=== PATIENT | female | born 1985 | race Caucasian/White ===

== ENCOUNTER 2020-02-02 10:54 | Inpatient (IN) | payer BC ==
[2020-02-02 11:54] LABS: APPEARANCE,URINE SLIGHTLY-CLOUDY; BILIRUBIN,URINE NEGATIVE (NEGATIVE); COLOR,URINE YELLOW; GLUCOSE, URINE NEGATIVE (NEGATIVE); KETONES,URINE NEGATIVE (NEGATIVE); LEUKOCYTE ESTERASE,URINE NEGATIVE (NEGATIVE); NITRITE,URINE NEGATIVE (NEGATIVE); PROTEIN,URINE 30 mg/dL (NEGATIVE); UROBILINOGEN,URINE NEGATIVE mg/dL (<2.0)
[2020-02-02] MEDS ORDERED: RINGERS SOLUTION,LACTATED 1,000 ML IV ONE (12:05)
[2020-02-02] MEDS ORDERED: PENICILLIN G POTASSIUM 5,000,000 UNIT in DEXTROSE 5%-WATER 100 ML IV ONE (12:05)
[2020-02-02] MEDS ORDERED: PENICILLIN G-K 5 MILLION UNIT VIAL ONE ×3 (12:21→20:25)
[2020-02-02 12:26] LABS: URINE AMPHETAMINES SCREEN NEGATIVE; URINE BARBITURATES SCREEN NEGATIVE; URINE BENZODIAZEPINES SCREEN NEGATIVE; URINE COCAINE SCREEN NEGATIVE; URINE MARIJUANA (THC) SCREEN NEGATIVE; URINE METHADONE SCREEN NEGATIVE; URINE PHENCYCLIDINE SCREEN NEGATIVE
--- NOTE | 2020-02-02 12:33 | Admission Physical ---
Datetime Report Generated by CPN: 02/02/2020 12:33 CURRENT ADMISSION Chief Complaint: Suspected Ruptured Membranes Indication for Induction: PROM Admit Impression : Term, Intrauterine ; No Active Labor Admit Plan: Admit to Unit; Initiate Labor Augmentation Protocol ALLERGIES Medication Allergies: No Medication Allergies: No Known Allergies (01/09/2014) Latex: Latex Allergies OBSTETRICAL HISTORY EDC: 02/06/2020 00:00 : 1 Para: 0 Term: 0 : 0 SAB: 0 IAB: 0 Ectopic: 0 Livin Cesareans: 0 VBACs: 0 Multiple Births: 0 SEE RECORDS Alcohol: No Marijuana : No Cocaine: No Other Illicit Drugs: No Cigarettes: Current Some Day Smoker. [id number] PHYSICAL EXAM General: Normal HEENT: Normal Neurologic: Normal Thyroid: Deferred Heart: Normal Lungs: Normal Breast: Deferred Back: Normal Abdomen: Normal Genitourinary Exam: Normal Extremities: Normal DTRs: Deferred Pelvic Type: Adequate MEMBRANES Membranes: Ruptured Amniotic Fluid Color: Clear FETUS A EGA: 39.3 Monitoring: External US FHR- Baseline: 135 Variability: Moderate 6-25bpm Accelerations: 10X10 Decelerations: Prolonged Estimated Weight (gm): 3100 Presentation: Vertex Admit Comment: G1 at 39+3, srom at 0940 today-clear, GBS pos. prolonged decel (5 mins down to 60) recovered with position changes. 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 P: penicillin for GBS prophylaxis. discuss pitocin with pt, anticipate PLANS FOR LABOR AND DELIVERY Labor and Delivery: None Pain Management: None Feeding Preference: Breast Benefit of Breast Feed Discussed: Yes Circumcision: Yes INFORMED CONSENT Assignment: Diana Kasper MD Signature: with User ID: [email or web address] : with User ID: [email or web address]
[2020-02-02 12:37] LABS: ABSOLUTE EOSINOPHILS # (AUTO) 0.1 10^3/uL (0.0-0.6); ABSOLUTE LYMPHOCYTES (AUTO) 1.6 10^3/uL (0.5-4.7); ABSOLUTE MONOCYTES (AUTO) 0.5 10^3/uL (0.1-1.4); ABSOLUTE NEUT (AUTO) 8.5 10^3/uL (1.7-8.2); BASOPHILS % (AUTO) 0.4 % (0-2); EOSINOPHILS % (AUTO) 1.2 % (0-6); HEMATOCRIT 31.8 % (36.0-47.0); HEMOGLOBIN 11.7 g/dL (12.0-15.5); LYMPHOCYTES % (AUTO) 14.7 % (13-45); MEAN CORPUSCULAR HEMOGLOBIN 32.2 pg (27.0-33.4); MEAN CORPUSCULAR HGB CONC 36.6 g/dL (32.0-36.0); MEAN CORPUSCULAR VOLUME 88 fl (80-97); MONOCYTES % (AUTO) 4.9 % (3-13); PLATELET COUNT 348 10^3/uL (150-450); RED BLOOD COUNT 3.62 10^6/uL (3.72-5.28); SEGMENTED NEUTROPHILS % (AUTO) 78.8 % (42-78); TOTAL CELLS COUNTED % (AUTO) 100 %; WHITE BLOOD COUNT 10.8 10^3/uL (4.0-10.5)
[2020-02-02] MEDS ORDERED: OXYTOCIN/NORMAL SALINE 20 UNIT/1,000 ML RTUINJ IV PRN (13:13)
[2020-02-02] MEDS ORDERED: OXYTOCIN 10 UNIT/ML VIAL ONE (13:34)
[2020-02-02] MEDS ORDERED: OXYTOCIN/NORMAL SALINE 20 UNIT/1,000 ML RTUINJ ONE (13:34)
[2020-02-02] MEDS ORDERED: LIDOCAINE 1% INJ-PF (10 MG/ML) 30 ML SDV ONE ×2 (13:34→23:31)
[2020-02-02] MEDS ORDERED: MISOPROSTOL 0.2 MG TABLET ONE (13:34)
[2020-02-02] MEDS: PENICILLIN G POTASSIUM 2,500,000 UNIT in DEXTROSE 5%-WATER 50 ML IV SCH ×2 (16:37→20:29)
[2020-02-02] MEDS ORDERED: PROMETHAZINE HCL INJ 25 MG/1 ML VIAL IV ONE (16:54)
[2020-02-02] MEDS ORDERED: MORPHINE SULFATE 10 MG/ML INJ IV ONE (16:54)
[2020-02-02] MEDS ORDERED: PROMETHAZINE HCL INJ 25 MG/1 ML VIAL ONE (16:59)
[2020-02-02] MEDS ORDERED: MORPHINE SULFATE 10 MG/ML INJ ONE (17:00)
[2020-02-02] MEDS ORDERED: EPHEDRINE SULFATE INJ 50 MG/1 ML AMPULE ONE (19:18)
[2020-02-02] MEDS ORDERED: FENTANYL CITRATE INJ/PF 100 MCG/2 ML AMPUL ONE (19:18)
[2020-02-02] MEDS ORDERED: BUPIVACAINE HCL 0.25 % INJ/PF (2.5 MG/1 ML) 30 ML VIAL ONE (19:19)
[2020-02-02] MEDS ORDERED: FENTANYL/BUPIVACAINE/NS/PF 300 MCG/150 ML RTUINJ EPI ONE (19:19)
--- NOTE | 2020-02-02 23:52 | Warning Signs in Babies ---
VOD Warning Signs Datetime Report Generated by [facility]: 02/02/2020 23:52 VOD#608 -Warning Signs in Babies: Needs to be viewed. (02/02/2020 10:59:Irais Rubio RN)
[2020-02-03] MEDS ORDERED: CEFTRIAXONE INJ 1000 MG VIAL ONE (00:27)
[2020-02-03] MEDS ORDERED: DIBUCAINE 1% OINTMENT 28 GM TP PRN (00:44)
[2020-02-03] MEDS ORDERED: OXYTOCIN/NORMAL SALINE 20 UNIT/1,000 ML RTUINJ IV PRN (00:44)
[2020-02-03] MEDS ORDERED: ACETAMINOPHEN WITH CODEINE #3 TABLET PO PRN ×2 (00:44)
[2020-02-03] MEDS ORDERED: PROMETHAZINE HCL 25 MG TABLET PO PRN (00:44)
[2020-02-03] MEDS ORDERED: DIPH/PERTUSS(ACELL)/TETANUS VAC/PF 0.5 ML SYR (>=10YO) IM PRN (00:44)
[2020-02-03] MEDS ORDERED: ZOLPIDEM TARTRATE 5 MG TABLET PO PRN (00:44)
[2020-02-03] MEDS ORDERED: MAGNESIUM HYDROXIDE SUSP 30 ML UDCUP PO PRN (00:44)
[2020-02-03] MEDS ORDERED: PROMETHAZINE HCL INJ 25 MG/1 ML VIAL IV PRN (00:44)
[2020-02-03] MEDS ORDERED: ACETAMINOPHEN 650 MG SUPP.RECT PR PRN (00:44)
[2020-02-03] MEDS ORDERED: MEASLES,MUMPS&RUBELLA VACC/PF 0.5 ML VIAL SUBCUT PRN (00:44)
[2020-02-03] MEDS ORDERED: GLYCERIN/WITCH HAZEL LEAF 1 EACH MED..WIPE TP PRN (00:44)
[2020-02-03] MEDS ORDERED: DIPHENHYDRAMINE HCL 25 MG CAPSULE PO PRN (00:44)
[2020-02-03] MEDS ORDERED: PROMETHAZINE HCL 25 MG SUPP.RECT PR PRN (00:44)
[2020-02-03] MEDS ORDERED: NA PHOS,M-B/NA PHOS,DI-BA (ADULT) 133 ML ENEMA PR PRN (00:44)
[2020-02-03] MEDS ORDERED: PSEUDOEPHEDRINE HCL 30 MG TABLET PO PRN (00:44)
[2020-02-03] MEDS ORDERED: BENZOCAINE/MENTHOL AEROSOL SPRAY 56 ML TOP PRN (00:44)
[2020-02-03] MEDS ORDERED: IBUPROFEN 800 MG TABLET ONE (02:02)
[2020-02-03] MEDS: PENICILLIN G POTASSIUM 2,500,000 UNIT in DEXTROSE 5%-WATER 50 ML IV SCH (03:19)
--- NOTE | 2020-02-03 03:29 | Delivery Summary ---
Del Sum A-C Datetime Report Generated by CPN: 02/03/2020 03:28 DELIVERY PERSONNEL DELIVERY PERSONNEL: [id number] Delivery Doctor:: Diana Kasper MD Anesthesiologist:: Flori Palafox MD Labor and Delivery Nurse:: Natalee Ruvalcaba RN Labor and Delivery Nurse:: Naomy Kirby RN Nursery Nurse:: Laura Jiménez RN Nursery Nurse:: Nicol Hwang RN Information Security Consultant/SPACE CONTROL SUPERVISOR: Arti Quintero SURFACE LAY OUT TECHNICIAN Information Security Consultant/SPACE CONTROL SUPERVISOR: Erma Makayla, SURFACE LAY OUT TECHNICIAN MATERNAL INFORMATION Delivery Anesthesia: Epidural Medications After Delivery: Pitocin Bolus-Please Comment Meds After Delivery Comment: Pitocin 20 units/1000 mL NS bolus following delivery Delivery QBL Comment: Laura Stackh RN called returned to delivery room at 5 mins of age. Maternal Complications: Maternal Fever LABOR SUMMARY EDC: 02/06/2020 00:00 No. Babies in Womb: 1 Attempted: No Labor Anesthesia: Epidural LABOR INFORMATION Reason for Induction: Not Applicable Onset of Labor: 02/02/2020 09:40 Complete Dilatation: 02/02/2020 20:07 Oxytocin: Augmentation Group B Beta Strep: Positive Antibiotics # of Doses: 3 Antibiotics Time of Last Dose: 2029 Name of Antibiotic Given: Penicillin Steroids Given: None Reason Steroids Not Administered: Not Applicable MEMBRANES Membranes Rupture Method: Spontaneous Rupture of Membranes: 02/02/2020 09:40 Length of Rupture (hr): 14.50 Amniotic Fluid Color: Clear Amniotic Fluid Amount: Moderate Amniotic Fluid Odor: Normal STAGES OF LABOR Stage 1 hr: 10 Stage 1 min: 27 Stage 2 hr: 4 Stage 2 min: 3 Stage 3 hr: 0 Stage 3 min: 4 Total Time in Labor hr: 14 Total Time in Labor min: 34 VAGINAL DELIVERY Episiotomy: None Laceration #1: Perineal Laceration Extension #1: Second Degree Laceration #2: None Laceration Extension #2: N/A Laceration #3: None Laceration Extension #3: N/A Laceration Repair: Yes Laceration Repair Note: Repair of second degree perineal laceration in usual fashion. Sponge Count Correct: Yes Sharps Count Correct: No CSECTION DELIVERY Primary Indication: N/A Secondary Indication: N/A CSection Incidence: N/A Labor: N/A Elective: N/A CSection Incision: N/A BABY A INFORMATION Infant Delivery Date/Time: 02/03/2020 00:10 Method of Delivery: Vaginal Nurse Controlled Delivery: No Born in Route : No : N/A Forceps: N/A Vacuum Extraction: N/A Shoulder Dystocia : No PRESENTATION/POSITION BABY A Presentation: Cephalic Cephalic Presentation: Vertex Vertex Position: Right Occipital Anterior Breech Presentation: N/A PLACENTA INFORMATION BABY A Placenta Delivery Time : 02/03/2020 00:14 Placenta Method of Delivery: Spontaneous Placenta Status: Delivered SCORES BABY A Heart Rate 1 min: Slow, Below 100 bpm Resp Effort 1 min: Absent Reflex Irritability 1 min: No Response Muscle Tone 1 min: Flaccid Color 1 min: Body [place], Extremities Blue Resuscitation Effort 1 min: Tactile Stimulation SCORE 1 MIN: 2 Heart Rate 5 min: >100 bpm Resp Effort 5 min: Slow, Irregular Reflex Irritability 5 min: Grimace Muscle Tone 5 min: Some Flexion of Extremities Color 5 min: Blue/Pale Resuscitation Effort 5 min: Tactile Stimulation; Oxygen; PPV/NCPAP SCORE 5 MIN: 5 Heart Rate 10 min: >100 bpm Resp Effort 10 min: Good Cry Reflex Irritability 10 min: Cough or Sneeze or Pulls Away Muscle Tone 10 min: Active Motion Color 10 min: Body [place], Extremities Blue Resuscitation Effort 10 min: Tactile Stimulation SCORE 10 MIN: 9 INFORMATION BABY A Gestational Age at Delivery: 39.3 Gestational Status: Full Term- 39- 40.6 Weeks Outcome : Liveborn Infant Condition : Stable Sex: Male IDENTIFICATION BABY A Verification Date/Time: 02/03/2020 01:00 ID Band Number: [id number] Mother's Name Verified: Yes Infant RN Verifying : Yaz Ruvalcaba RN Additional Verifying Personnel: [employer]. RN WEIGHT/LENGTH BABY A Infant Birthweight (gm): 2943 Infant Weight (lb): 6 Weight (oz): 8 Infant Length (in): 17.50 Infant Length (cm): 44.45 CORD INFORMATION BABY A No. Cord Vessels: 3 Nuchal Cord : yes Nuchal Cord- Other: x3 around neck Cord Blood Taken: Yes-For Storage (Mom's Blood type +) Suction: Mouth; Nose ASSESSMENT BABY A Complications: None Physical Findings at Delivery: Molding of the Head Physical Findings- Other: See full nursery cardiac tech Skin to Skin: No Bench Boring Machine Operator/ALS Called : Yes Care By: Audrey Jiménez RN _ Ezekiel Hwang RN Transferred To: NICU BABY B INFORMATION : Failed SIGNATURES Signature: with User ID: [email or web address]
[2020-02-03] MEDS: IBUPROFEN 800 MG TABLET PO SCH ×3 (05:37→21:21)
[2020-02-03] MEDS: FERROUS SULFATE 325 MG TABLET PO SCH ×2 (09:41→17:23)
[2020-02-03] MEDS: SENNOSIDES/DOCUSATE 8.6-50 MG 1 EACH TABLET PO SCH (09:42)
[2020-02-03] MEDS: FAMOTIDINE 20 MG TABLET PO SCH ×2 (09:42→21:21)
[2020-02-03] MEDS: DOCUSATE SODIUM 100 MG CAPSULE PO SCH ×2 (09:42→17:23)
[2020-02-03] MEDS: PRENATAL VITAMIN W DHA CAPSULE PO SCH (09:42)
[2020-02-04] MEDS: IBUPROFEN 800 MG TABLET PO SCH ×3 (06:30→22:25)
[2020-02-04 06:54] LABS: HEMATOCRIT 31.4 % (36.0-47.0); HEMOGLOBIN 11.3 g/dL (12.0-15.5); MEAN CORPUSCULAR HEMOGLOBIN 32.3 pg (27.0-33.4); MEAN CORPUSCULAR VOLUME 90 fl (80-97); PLATELET COUNT 347 10^3/uL (150-450); RED BLOOD COUNT 3.49 10^6/uL (3.72-5.28); RED CELL DISTRIBUTION WIDTH 14.4 % (11.5-14.0); WHITE BLOOD COUNT 10.2 10^3/uL (4.0-10.5)
[2020-02-04] MEDS: FAMOTIDINE 20 MG TABLET PO SCH ×2 (10:34→22:24)
[2020-02-04] MEDS: SENNOSIDES/DOCUSATE 8.6-50 MG 1 EACH TABLET PO SCH (10:34)
[2020-02-04] MEDS: PRENATAL VITAMIN W DHA CAPSULE PO SCH (10:34)
[2020-02-04] MEDS: FERROUS SULFATE 325 MG TABLET PO SCH ×2 (10:34→17:45)
[2020-02-04] MEDS: DOCUSATE SODIUM 100 MG CAPSULE PO SCH ×2 (10:34→17:45)
--- NOTE | 2020-02-04 11:06 | PDOC PROGRESS REPORT ---
Subjective-OB Progress Note for:: 02/04/20 Subjective: reports bleeding slowing, pain controlled with current meds. denies needs. Physical Exam (OB) Vital Signs: Temp Pulse Resp BP Pulse Ox 98.0 F 72 18 118/65 100 02/04/20 07:36 02/04/20 07:36 02/04/20 07:36 02/04/20 07:36 02/04/20 07:36 Intake & Output 02/03/20 02/04/20 02/05/20 06:59 06:59 06:59 Intake Total 600 480 Balance 600 480 Weight 88.5 kg - Abdomen Description: Soft Hernia Present: No Fundal Description: Firm, Midline Fundal Height: u/u - u/2 - Abdominal Distension: No distension Tenderness: Nontender - Extremities Lower extremities: Kalen's sign - neg Calf: Normal, Nontender Objective-Diagnostic Laboratory: 02/04/20 06:43 02/04/20 06:43 WBC 10.2 RBC 3.49 L Hgb 11.3 L Hct 31.4 L MCV 90 MCH 32.3 MCHC 36.0 RDW 14.4 H Plt Count 347 Assessment and Plan(PN) - Time Spent with Patient Time with patient: Less than 15 minutes Medications reviewed and adjusted accordingly: Yes - Disposition Anticipated Discharge: Home Within: within 24 hours
[2020-02-05] MEDS: IBUPROFEN 800 MG TABLET PO SCH ×2 (06:41→14:03)
[2020-02-05] MEDS: PRENATAL VITAMIN W DHA CAPSULE PO SCH (09:57)
[2020-02-05] MEDS: DOCUSATE SODIUM 100 MG CAPSULE PO SCH (09:57)
[2020-02-05] MEDS: SENNOSIDES/DOCUSATE 8.6-50 MG 1 EACH TABLET PO SCH (09:57)
[2020-02-05] MEDS: FERROUS SULFATE 325 MG TABLET PO SCH (09:57)
[2020-02-05] MEDS: FAMOTIDINE 20 MG TABLET PO SCH (09:57)
--- NOTE | 2020-02-05 12:36 | PDOC DISCHARGE SUMMARY ---
Impression - Admit/DC Date/PCP Admission Date/Primary Care Provider: 02/02/20 12:07 MARY KATE REYNOSO MD Discharge Date: 02/05/20 - Discharge Diagnosis (1) Normal vaginal delivery Is this a current diagnosis for this admission?: Yes (2) PROM (premature rupture of membranes) Is this a current diagnosis for this admission?: Yes (3) Perineal laceration during delivery, delivered Is this a current diagnosis for this admission?: Yes (4) Spontaneous rupture of amniotic membranes Is this a current diagnosis for this admission?: Yes (5) Status post induction of labor Is this a current diagnosis for this admission?: Yes (6) Tobacco smoking affecting Is this a current diagnosis for this admission?: Yes - Assessment Summary: 34yo G1 now P1 s/p ppd2 stable and ready for discharge. Understands warning s/s and reasons to rtc/[facility] - Additional Information Resuscitation Status: Full Code Discharge Diet: As Tolerated, Regular Discharge Activity: Activity As Tolerated, Balance Activity w/Rest, No Lifting Over 10 Pounds, Pelvic Rest, No tub bath, Walk Frequently Referrals: MARY KATE REYNOSO MD [Primary Care Provider] - Prescriptions: Ibuprofen [Motrin 800 mg Tablet] 800 mg PO Q8HP PRN #20 tablet PRN Reason: Abdominal Cramping Home Medications: Levothyroxine Sodium [Synthroid 0.088 mg Tablet] 88 mcg PO DAILY 02/02/20 Vits96/Iron Fum/Folic [ Tablet] 1 each PO DAILY 02/02/20 Sertraline HCl [Zoloft 50 mg Tablet] 200 mg PO DAILY 02/02/20 Valacyclovir HCl [Valtrex 500 mg Tablet] 1,000 mg PO DAILY 02/02/20 Ibuprofen [Motrin 800 mg Tablet] 800 mg PO Q8HP PRN #20 tablet 02/05/20 Results Laboratory Results: WBC 10.2 10^3/uL (4.0-10.5) 02/04/20 06:43 RBC 3.49 10^6/uL (3.72-5.28) L 02/04/20 06:43 Hgb 11.3 g/dL (12.0-15.5) L 02/04/20 06:43 Hct 31.4 % (36.0-47.0) L 02/04/20 06:43 MCV 90 fl (80-97) 02/04/20 06:43 MCH 32.3 pg (27.0-33.4) 02/04/20 06:43 MCHC 36.0 g/dL (32.0-36.0) 02/04/20 06:43 RDW 14.4 % (11.5-14.0) H 02/04/20 06:43 Plt Count 347 10^3/uL (150-450) 02/04/20 06:43 Lymph % (Auto) 14.7 % (13-45) 02/02/20 12:27 [place] % (Auto) 4.9 % (3-13) 02/02/20 12:27 Eos % (Auto) 1.2 % (0-6) 02/02/20 12: Baso % (Auto) 0.4 % (0-2) 02/02/20 12:27 Absolute Neuts (auto) 8.5 10^3/uL (1.7-8.2) H 02/02/20 12:27 Absolute Lymphs (auto) 1.6 10^3/uL (0.5-4.7) 02/02/20 12:27 Absolute Monos (auto) 0.5 10^3/uL (0.1-1.4) 02/02/20 12:27 Absolute Eos (auto) 0.1 10^3/uL (0.0-0.6) 02/02/20 12:27 Absolute Basos (auto) 0.0 10^3/uL (0.0-0.2) 02/02/20 12:27 Seg Neutrophils % 78.8 % (42-78) H 02/02/20 12:27 Urine Color YELLOW 02/02/20 11:15 Urine Appearance SLIGHTLY-CLOUDY 02/02/20 11:15 Urine pH 6.0 (5.0-9.0) 02/02/20 11:15 Ur Specific [place] 1.020 02/02/20 11:15 Urine Protein 30 mg/dL (NEGATIVE) H 02/02/20 11:15 Urine Glucose (UA) NEGATIVE mg/dL (NEGATIVE) 02/02/20 11:15 Urine Ketones NEGATIVE mg/dL (NEGATIVE) 02/02/20 11:15 Urine Blood MODERATE (NEGATIVE) H 02/02/20 11:15 Urine Nitrite NEGATIVE (NEGATIVE) 02/02/20 11:15 Urine Bilirubin NEGATIVE (NEGATIVE) 02/02/20 11:15 Urine Urobilinogen NEGATIVE mg/dL (<2.0) 02/02/20 11:15 Ur Leukocyte Esterase NEGATIVE (NEGATIVE) 02/02/20 11:15 Urine Ascorbic Acid NEGATIVE (NEGATIVE) 02/02/20 11:15 Membranes Rupture POSITIVE (NEGATIVE) H 02/02/20 11:15 Urine Opiates Screen NEGATIVE 02/02/20 11:15 Urine Methadone Screen NEGATIVE 02/02/20 11:15 Ur Barbiturates Screen NEGATIVE 02/02/20 11:15 Ur Phencyclidine Scrn NEGATIVE 02/02/20 11:15 Ur Amphetamines Screen NEGATIVE 02/02/20 11:15 U Benzodiazepines Scrn NEGATIVE 02/02/20 11:15 Urine Cocaine Screen NEGATIVE 02/02/20 11:15 U Marijuana (THC) Screen NEGATIVE 02/02/20 11:15 RPR NONREACTIVE (NONREACTIVE) 02/02/20 12:27 Blood Type O POSITIVE 02/02/20 12:27 Antibody Screen NEGATIVE 02/02/20 12:27
[2020-02-05 13:16] VITALS: BP 122/54
== END 2020-02-05 16:24 | disposition home or self-care (01) | DRG 806 ==
LOC: LC 10:54 → LR 12:07 → 2S 02-03 02:37
PROVIDERS: ADMIT Obstetrics & Gynecology; ATTEND Obstetrics & Gynecology
PROC: 10E0XZZ Delivery of Products of Conception, External Approach (ICD-10-PCS; principal; 2020-02-03)
PROC: 0KQM0ZZ Repair Perineum Muscle, Open Approach (ICD-10-PCS; 2020-02-03)
DX: O42.92 Full-term premature rupture of membranes, unspecified as to length of time between rupture and onset of labor (principal); O75.2 Pyrexia during labor, not elsewhere classified; Z37.0 Single live birth; O98.52 Other viral diseases complicating childbirth; B00.89 Other herpesviral infection; O99.824 Streptococcus B carrier state complicating childbirth; O76 Abnormality in fetal heart rate and rhythm complicating labor and delivery; O70.1 Second degree perineal laceration during delivery; O69.81X0 Labor and delivery complicated by cord around neck, without compression, not applicable or unspecified; O99.334 Smoking (tobacco) complicating childbirth; F17.210 Nicotine dependence, cigarettes, uncomplicated; Z3A.39 39 weeks gestation of pregnancy
CPT/HCPCS: 36415; 80307; 81005; 84112; 85025; 85027; 86592; 86850; 86900; 86901; J0696; J2270; J2540; J2550; J2590; J3010; J3490; J7060